=== PATIENT | female | born 1965 | race Caucasian/White ===

== ENCOUNTER 2018-01-13 13:06 | Emergency (ER) | payer BC ==
[2018-01-13 13:09] VITALS: BP 158/73
[2018-01-13] MEDS ORDERED: LIDOCAINE-MPF 2%, 2ML ONE (13:29)
== END 2018-01-13 14:54 | disposition home or self-care (01) ==
LOC: ED 14:50
DX: M25.461 Effusion, right knee (principal); F17.200 Nicotine dependence, unspecified, uncomplicated
CPT/HCPCS: 20610; 82945; 83615; 84157; 84560; 85810; 87070; 87205; 89050; 89060; 99284

== ENCOUNTER 2020-08-10 13:44 | Emergency (ER) | payer BC ==
[~2020-08-10] VITALS: Ht 175.3 cm; Wt 90.0 kg
--- NOTE | 2020-08-10 14:51 | NUR ---
THIS IS A 55 YO F W/ C/O N/V X1 WEEK AND NUMBNESS IN TIP OF TONGUE, MOUTH, CHIN, HANDS AND FEET X1 MONTH. PT REPORTS HAS BEEN DRINKING 2.5L [place] EVERY DAY, HAS NOT HAD A DRINK IN 3 DAYS. PT RESTING ON GURNEY W/ CALL LIGHT IN REACH AND SIDE RAILS UPX2. RESP EVEN AND UNLABORED, NADN. AWAITING ED EVAL.
--- NOTE | 2020-08-10 15:07 | NUR ---
BHARGAVI FRANCES AT BEDSIDE.
[2020-08-10] MEDS ORDERED: ONDANSETRON 2MG/ML, 2ML ONE (15:23)
[2020-08-10] MEDS ORDERED: LORazepam 2 MG/ML, 1ML ONE (15:24)
[2020-08-10] MEDS ORDERED: FAMOTIDINE 20 MG/2 ML ONE (15:24)
[2020-08-10] MEDS ORDERED: SODIUM CHLORIDE 0.9% 1,000ML IVBOLUS ONE (15:30)
[2020-08-10] MEDS ORDERED: LORazepam 2 MG/ML, 1ML IVPush ONE (15:30)
[2020-08-10] MEDS ORDERED: FAMOTIDINE 20 MG/2 ML IVPush ONE (15:30)
[2020-08-10] MEDS ORDERED: ONDANSETRON 2MG/ML, 2ML IVPush ONE (15:30)
--- NOTE | 2020-08-10 15:33 | NUR ---
PIV STARTED BY DARIA SODA DRIER FE[employer]ER. LABS DRAWN AND SENT. PT MEDICATED PER EMAR. GERALD, [place].
[2020-08-10 15:51] LABS: ALANINE AMINOTRANSFERASE 104 U/L (12-78); ALBUMIN 3.6 g/dL (3.4-5.0); ANION GAP 15 mmol/L (5-15); CALCIUM 9.4 mg/dL (8.5-10.1); CHLORIDE 105 mmol/L (98-107)
[2020-08-10 15:53] LABS: ALKALINE PHOSPHATASE 134 U/L (45-117); BILIRUBIN,TOTAL 0.9 mg/dL (0.2-1.0); TOTAL PROTEIN 7.1 g/dL (6.4-8.2)
[2020-08-10 15:56] LABS: BASOPHILS % (AUTO) 0 % (0-1); EOSINOPHILS % (AUTO) 1 % (1-7); LYMPHOCYTES % (AUTO) 10 % (22-44); MEAN CORPUSCULAR HEMOGLOBIN 38.1 pg (27.0-34.8); MEAN CORPUSCULAR HGB CONC 33.9 g/dL (32.4-35.8); MEAN PLATELET VOLUME 9.1 fL (7.4-10.4); MONOCYTES % (AUTO) 7 % (2-9); NEUTROPHILS % (AUTO) 82 % (42-75); PLATELET COUNT 206 x10^3/uL (130-400); RED BLOOD COUNT 5.27 x10^6/uL (3.82-5.3)
[2020-08-10 16:33] LABS: MD SCAN
[2020-08-10 16:57] VITALS: BP 134/91
--- NOTE | 2020-08-10 17:07 | NUR ---
PT RESTING ON GURNEY W/ CALL LIGHT IN REACH, SIDE RAILS UPX2 AND FAMILY AT BEDSIDE, VSS, NADN.
--- NOTE | 2020-08-10 17:32 | NUR ---
PT WHEELED TO BR, TRANSFERED TO TOILET W/O INCIDENT. CLEAN CATCH URINE SPECIMEN COLLECTED. PT RETURNED TO ROOM W/O INCIDENT. RESP EVEN AND UNLABORED, [place].
--- NOTE | 2020-08-10 17:43 | NUR ---
US AT BEDSIDE.
[2020-08-10 18:08] LABS: MICROSCOPIC INDICATED
--- NOTE | 2020-08-10 19:00 | NUR ---
Patient given discharge instructions and they have confirmed that they understand the instructions. Patient wheeled to dc desk per pt request.
== END 2020-08-10 19:02 | disposition home or self-care (01) ==
LOC: ED 18:56
DX: K29.20 Alcoholic gastritis without bleeding (principal); R11.2 Nausea with vomiting, unspecified
CPT/HCPCS: 36415; 76700; 80053; 80320; 81001; 83690; 85025; 87077; 87086; 87186; 96361; 96374; 96375; 99284; J2060; J2405; J7030; G0480

== ENCOUNTER 2020-08-21 12:35 | Emergency (ER) | payer BC ==
[~2020-08-21] VITALS: Ht 175.3 cm; Wt 90.0 kg
--- NOTE | 2020-08-21 14:19 | NUR ---
PT BIB SISTER VIA POV DUE TO WORSENING NUMBNESS AND TINGLING IN FINGERS, WORSENING AND SPREADING TO ALL EXTREMITIES, GENERAL WEAKNESS, DIFFICULTY STANDING. PT STATES SHE HAS HAD THESE SYMPTOMS SINCE 06/2020, BUT THEY ARE WORSENING TODAY. PT RESTING IN [facility], MONITORING IN PLACE, NADN AT THIS TIME, [facility].
--- NOTE | 2020-08-21 14:25 | NUR ---
PT TO CT VIA [facility].
--- NOTE | 2020-08-21 14:35 | NUR ---
PT BACK FROM CT TO ROOM VIA MARGARET
[2020-08-21] MEDS ORDERED: SODIUM CHLORIDE FLUSH 10ML SYR IVF ONE (15:00)
[2020-08-21 15:05] LABS: BASOPHILS % (AUTO) 1 % (0-1); EOSINOPHILS % (AUTO) 2 % (1-7); LYMPHOCYTES % (AUTO) 15 % (22-44); MEAN CORPUSCULAR HEMOGLOBIN 38.5 pg (27.0-34.8); MEAN CORPUSCULAR HGB CONC 33.6 g/dL (32.4-35.8); MEAN PLATELET VOLUME 8.5 fL (7.4-10.4); MONOCYTES % (AUTO) 8 % (2-9); NEUTROPHILS % (AUTO) 75 % (42-75); PLATELET COUNT 261 x10^3/uL (130-400); RED BLOOD COUNT 4.78 x10^6/uL (3.82-5.3); RED CELL DISTRIBUTION WIDTH 15.2 % (9.6-15.2)
[2020-08-21 15:09] LABS: MICROSCOPIC AUTO
[2020-08-21 15:17] LABS: ALANINE AMINOTRANSFERASE 61 U/L (12-78); ALBUMIN 3.2 g/dL (3.4-5.0); ANION GAP 4 mmol/L (5-15); CHLORIDE 107 mmol/L (98-107)
[2020-08-21 15:20] LABS: ALKALINE PHOSPHATASE 107 U/L (45-117); BILIRUBIN,TOTAL 0.3 mg/dL (0.2-1.0); CREATININE 0.58 mg/dL (0.55-1.02); TOTAL PROTEIN 6.5 g/dL (6.4-8.2)
[2020-08-21 16:13] LABS: MD SCAN
[2020-08-21] MEDS ORDERED: GADOTERATE 10 MMOL/20ML SYR ONE (17:44)
--- NOTE | 2020-08-21 18:37 | NUR ---
DR. REHMAN AT BEDSIDE TO UPDATE PT ON POC.
[2020-08-21 19:03] VITALS: BP 132/90
--- NOTE | 2020-08-21 19:04 | NUR ---
Patient given discharge instructions and they have confirmed that they understand the instructions. Patient assisted to wc and out of ER in WC with . Rx reviewed and understood. Pt instructed to f/u with neuro.
== END 2020-08-21 19:07 | disposition home or self-care (01) ==
LOC: ED 15:51
DX: N30.00 Acute cystitis without hematuria (principal); R53.1 Weakness; F17.200 Nicotine dependence, unspecified, uncomplicated; M19.90 Unspecified osteoarthritis, unspecified site
CPT/HCPCS: 36415; 70450; 70553; 72156; 80053; 81001; 83735; 85025; 85651; 87077; 87086; 87186; 93005; 99285; A9575